=== PATIENT | male | born 1985 | race Caucasian/White ===

== ENCOUNTER 2018-07-13 08:20 | Emergency (ER) | payer SELFPAY ==
[2018-07-13] MEDS ORDERED: NA CHLORIDE 0.9% 1,000 ML ONE (09:14)
[2018-07-13] MEDS ORDERED: LISINOPRIL 20 MG TAB ONE (09:14)
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
[2018-07-13 09:54] LABS: Absolute Lymphocytes (CBC) 2.1 K/uL (0.7-4.9); Absolute Monocytes 0.4 K/uL (0.1-1.3); Absolute Neutrophil 5.3 K/uL (1.8-8.0); Basophils % 1.1 % (0-1.3); Eosinophils % 3.8 % (0-4.4); Hematocrit 45.1 % (39.6-49.0); Lymphocytes % 25.3 % (15.3-44.8); MCH 32.3 pg (27.0-35.0); MCV 92.7 fL (80-100); MPV 7.5 fL (7.6-11.3); Monocytes % 5.4 % (3.3-12.3); RBC Red Blood Cell Count 4.87 M/uL (4.33-5.43)
[2018-07-13 10:01] LABS: ALT/SGPT 72 U/L (12-78); AST/SGOT 60 U/L (15-37); Albumin 3.7 g/dL (3.4-5.0); Alkaline Phosphatase 59 U/L (45-117); BUN Blood Urea Nitrogen 8 mg/dL (7-18); Bicarbonate 28 mmol/L (21-32); Bilirubin Direct 0.2 mg/dL (0-0.2); Bilirubin Total 0.6 mg/dL (0.2-1.0); Glucose Level 103 mg/dL (74-106); Magnesium 2.3 mg/dL (1.8-2.4); Potassium 4.2 mmol/L (3.5-5.1); Sodium Level 138 mmol/L (136-145); Troponin (Emerg Dept Use Only) < 0.02 ng/mL (0.0-0.045)
--- NOTE | 2018-07-13 10:01 | RAD REPORT ---
EXAM DESCRIPTION: RAD - Chest Single View - 07/13/2018 9:39 am CLINICAL HISTORY: elevated blood pressure Chest pain. COMPARISON: No comparisons FINDINGS: Portable technique limits examination quality. The lungs are grossly clear. The heart is upper limit of normal in size. No displaced fractures. IMPRESSION: No acute intrathoracic process suspected.
[2018-07-13] MEDS ORDERED: HYDRALAZINE HCL 20 MG/ML VIAL ONE (10:26)
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
[2018-07-13] MEDS ORDERED: DEXAMETHASONE 10 MG/ML VIAL ONE (10:58)
[2018-07-13] MEDS ORDERED: METOCLOPRAMIDE 10 MG/2mL INJ ONE (10:59)
[2018-07-13] MEDS ORDERED: CEFTRIAXONE/SWI 1gm 1 GM/10 ML SYR ONE (10:59)
--- NOTE | 2018-07-14 07:02 | EKG ---
Test Date: 2018-07-13 Test Time: 09:44:48 Channel Man: YVES MEASUREMENT RESULTS: Intervals: Rate: 95 NH: 156 QRSD: 94 QT: 378 QTc: 475 [place]: P: 13 NH: 156 QRS: -33 T: 35 INTERPRETIVE STATEMENTS: Normal sinus rhythm Left axis deviation Abnormal ECG No previous ECG available for comparison Electronically Signed On 07-14-18 06:53:21 [employer] by Jose Carlos Mcdermott
== END 2018-07-13 11:28 | disposition home or self-care (01) ==
LOC: ER 08:20
DX: H66.91 Otitis media, unspecified, right ear (principal); I11.9 Hypertensive heart disease without heart failure; I10 Essential (primary) hypertension; F17.210 Nicotine dependence, cigarettes, uncomplicated
CPT/HCPCS: 36415; 70450; 71045; 72125; 80048; 80076; 82962; 83735; 84484; 85025; 93005; 96361; 96365; 96375; 99284; J0360; J0696; J1100; J2765; J7030